=== PATIENT | female | born 1940 | race Caucasian/White ===

== ENCOUNTER 2017-09-23 18:24 | Emergency (ER) | payer OTHER, MEDICARE ==
--- NOTE | 2017-09-23 18:58 | PDOC ---
Rapid Medical Evaluation Time Seen by Provider: 09/23/17 18:52 Medical Evaluation: 09/23/17 18:52 I have performed a brief in-person evaluation of this patient. The patient presents with a chief complaint of: fell off bed last night, hit knee rt rib, rt eye ecchymosis , no anticoagulation tx Pertinent physical exam findings: vss, ambulatory, abrasion/ ecchymosis to rt orbital floor , rt rib tenderness at rt axillary (2-3 rib) I have ordered the following: facial ct rt rib xray The patient will proceed to the ED for further evaluation.
[2017-09-23 19:01] VITALS: BP 140/89; PULSE 90; TEMP 97.8; BMI 27.3
[2017-09-23] MEDS ORDERED: DIPHTH,PERTUSS(ACELL),TET 0.5 ML DISP.SYRIN IM ONE (20:39)
[2017-09-23] MEDS ORDERED: ACETAMINOPHEN 325 MG TABLET (FP) PO ONE (20:39)
--- NOTE | 2017-09-23 20:41 | PDOC ---
History of Present Illness - General Chief Complaint: Injury Stated Complaint: FALL/INJURY Time Seen by Provider: 09/23/17 18:52 History Source: Patient Exam Limitations: No Limitations - History of Present Illness Initial Comments: 09/23/17 20:38 lost balance climbing up the stool to her bed and fell hitting her face right ribs and knee last night. no LO no vomiting or dizzyness. Pt takes no blood thinners. Occurred: reports: yesterday Severity: reports: moderate Pain Location: reports: face, lower extremity Method of Injury: Yes: fall Past History - Past Medical History Allergies/Adverse Reactions: Allergies Allergy/AdvReac Type Severity Reaction Status Date / Time No Known Allergies Allergy Verified 09/23/17 18:53 COPD: No - Immunization History Immunization Up to Date: Yes - Suicide/Smoking/Psychosocial Hx Smoking History: Never smoked Have you smoked in the past 12 months: No If you are a former smoker, when did you quit?: unk Information on smoking cessation initiated: No Hx Alcohol Use: No Drug/Substance Use Hx: No Substance Use Type: None *Physical Exam - Vital Signs Last Vital Signs Temp Pulse Resp BP Pulse Ox 97.8 F 90 16 140/89 95 09/23/17 18:59 09/23/17 18:59 09/23/17 18:59 09/23/17 18:59 09/23/17 18:59 - Physical Exam General Appearance: Yes: Nourished, Appropriately Dressed HEENT: positive: EOMI, ARTEM, Normal ENT Inspection, TMs Normal, Pharynx Normal, Other (abrasion to the right upper eyelid with swelling, bruising to the left side nasal bridge) Respiratory/Chest: positive: Chest Tender (right ribs under lateral breast ), Lungs Clear, Normal Breath Sounds Cardiovascular: positive: Regular Rhythm, Regular Rate Gastrointestinal/Abdominal: positive: Normal Bowel Sounds, Soft Musculoskeletal: positive: Normal Inspection Extremity: positive: Normal Capillary Refill, Normal Inspection, Normal Range of Motion, Tender (no bony tendneress to right knee, bruising noted to the medial aspect of the knee distal thigh, FROM nv intact ) Integumentary: positive: Normal Color, Dry, Warm Neurologic: positive: Fully Oriented, Alert, Normal Mood/Affect, Normal Response , Motor Strength 5/5 Medical Decision Making - Medical Decision Making 09/23/17 20:43 cc: mechanical fall last night hit the right rib face and knee the pt has no LOC no dizzyness or shortness of breath will update tetanus vaccine tylenol for pain pt and her daughter agree with the discharge plan all questions asked and answered *DC/Admit/Observation/Transfer Diagnosis at time of Disposition: Abrasion Fracture, rib Qualifiers: Encounter type: initial encounter Rib fracture type: single rib Fracture type: closed Laterality: right Qualified Code(s): S22.31XA - Fracture of one rib, right side, initial encounter for closed fracture Contusion, knee Qualifiers: Encounter type: initial encounter Laterality: right Qualified Code(s): S80.01XA - Contusion of right knee, initial encounter - Discharge Dispostion Disposition: HOME Condition at time of disposition: Good - Referrals Referrals: Reagan Moreno MD [Primary Care Provider] - - Patient Instructions Additional Instructions: ice every 2hrs for 20 minutes for the next 2 days while awake to the area of pain take tylenol 650mg every 4-6hrs for pain follow with your primary care doctor for follow up in 2-3 days Return to ER for any worsening symptoms short of breath, cough fever or severe pain - Post Discharge Activity
[2017-09-23] MEDS ORDERED: ACETAMINOPHEN 325 MG TABLET (FP) ONE (20:43)
== END 2017-09-23 20:59 | disposition home or self-care (01) ==
LOC: JERFT 18:24
DX: S22.31XA Fracture of one rib, right side, initial encounter for closed fracture (principal); S05.11XA Contusion of eyeball and orbital tissues, right eye, initial encounter; S80.01XA Contusion of right knee, initial encounter; W06.XXXA Fall from bed, initial encounter; Y93.89 Activity, other specified; Y92.032 Bedroom in apartment as the place of occurrence of the external cause
CPT/HCPCS: 70486-TC; 71101-TC-RT; 90715; 99281-25